=== PATIENT | male | born 1990 | race Caucasian/White ===

== ENCOUNTER 2016-07-06 10:16 | Emergency (ER) | payer OTHER ==
[~2016-07-06] VITALS: Ht 190.5 cm; Wt 118.2 kg
[2016-07-06 10:20] VITALS: BP 150/95; PULSE 82; RESP 16; O2SAT 95
--- NOTE | 2016-07-06 10:40 | ED.REPORT ---
HPI-General Illness Date of Service July 06, 2016 ED Provider: Charla Michele MD The patient is a 25 year old male who presents to the emergency department complaining of a needle stick that occurred just prior to arrival. 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 The stylet itself was still sterile and had not been used yet but the glove that it went through was contaminated with blood and urine. He rinsed the wound well after the injury occurred. He denies any other injuries. His tetanus is up to date. Nursing Notes Stated Complaint: NEEDLE STICK Chief Complaint: General Complaint Nursing Notes Reviewed: Yes Allergies: Coded Allergies: No Known Allergies (Unverified , 07/06/16) General Time Seen by MD: 10:39 Chief Complaint Other (needle struck) Hx Obtained From: Patient Arrived By: Walk-in Sudden in Onset?: Yes Onset Occurred: Just prior to arrival Symptom Duration: Since onset Context: Occurred at: Workplace Location: : Hand left Quality: Painful Severity: Current: No pain currently Severity: Maximum: Mild Recent Healthcare: No recent hospitalization Similar Sx Previous: No Past Medical History Past Medical History None Past Surgical History None Family History Noncontributory Smoking History Unknown if Ever Smoker Social History Other Social History: Local resident Occupation [employer] employee Ambulatory Status Independent Review of Systems +needle stick Complete sys rev & neg: except as marked. Physical Exam Vital Signs Vital Signs Date Time Temp Pulse Resp B/P Pulse Ox O2 Delivery O2 Flow Rate FiO2 07/06/16 10:20 35.9 82 16 150/95 95 Room Air Initial VS: Reviewed Head / Eyes: Atraumatic, Normocephalic, PERRL ENT: Mucous membranes moist, Conjunctiva normal, No scleral icterus Neck: Supple, Non-tender, Full range of motion Respiratory: No respiratory distress Extremities: Vascular intact, Neuro intact, No swelling, No tenderness Skin: Warm, Dry, No cyanosis Neurologic: Alert, Oriented, Nonfocal Psychiatric: Mood/affect normal, Behavior normal, Normal thought content General/Constitutional: Awake, Alert Wrist / Hand: Neurologic intact, Vascular intact There is a small superficial puncture to the left index finger near the DIP joint. Interpretation & Diagnostics Lab Results Interpretation Test 07/06/16 10:35 Re-Eval/Medical Decision Med Decision/Clinical Course patient to whom Sincere was exposed has been tested today and his labs reveal negavite HIV 1 and 2. Hep studies will return by 07/08 or 07/09. Discussion with Sincere 1600 07/06/16. I will contact him on Monday or Monday with Hepatitis results from the patient to whom he was exposed. No meds or immunizations are recommended today. The patient that was having the nephrostomy tube worked on is currently an inpatient and did agree to have HIV and hepatitis panels drawn and that was done. Sincere, the person who was stuck by the needle had an exposure panel drawn in the emergency department. Time of Eval: 10:45 Re-Evaluation/Progress Note: Discussed plan for discharge. Counseled Regarding: Diagnosis, Need for follow-up, When/why to return to ED Discharge & Departure Primary Impression: Exposure to blood-borne pathogen Disposition: Home Discharge Condition All VS Reviewed: Yes Condition: Stable Additional Instructions: Sorry this happend Sincere. You had your blood drawn and we will draw the patient as well. I will give you a call later today to discuss the follow up. Faridehibcitlalli Attestation Portions of this note were transcribed by Tena Lindsey. I, Dr. Michele personally performed the history, physical exam and medical decision-making; I reviewed and confirmed the accuracy of the information in the transcribed note. Signed by: Arnel Charlton, 07/06/2016 at 1135. Charla Michele MD July 06, 2016 10:40 Tena Lindsey July 06, 2016 11:00
== END 2016-07-06 11:03 | disposition home or self-care (01) ==
LOC: SED 10:16
DX: S61.231A Puncture wound without foreign body of left index finger without damage to nail, initial encounter (principal); W46.1XXA Contact with contaminated hypodermic needle, initial encounter; Y92.238 Other place in hospital as the place of occurrence of the external cause; Y93.89 Activity, other specified; Y99.0 Civilian activity done for income or pay; Z77.21 Contact with and (suspected) exposure to potentially hazardous body fluids
CPT/HCPCS: 36415; 86706; 99283; G0433